=== PATIENT | female | born 1995 | race Caucasian/White ===

== ENCOUNTER 2016-10-28 00:59 | Emergency (ER) | payer OTHER ==
[~2016-10-28] VITALS: Ht 162.6 cm; Wt 44.0 kg
[~2016-10-28 00:59] MED LIST: AMOX500T PO; OSEL75 PO; PRED50TA PO; Z.0.NO CURRENT MEDS
[2016-10-28 01:01] VITALS: BP 141/78; PULSE 90; RESP 18; TEMP 98; O2SAT 100
--- NOTE | 2016-10-28 01:29 | PD ---
HPI Chief Complaint: Psychiatric Symptoms Time Seen by Provider: 01:24 Travel History International Travel<30 days: No Contact w/Intl Traveler<30days: No Traveled to known affect area: No History of Present Illness HPI Patient comes emergency Department stating she has been feeling sad over the past 2-3 months. Patient denies any homicidal or suicidal ideations. Patient denies a history of self-harm. Patient states she was seeing a counselor 2-3 sessions, but did not feel as though she was getting any better and stopped going. Patient denies being on any medication for this. Patient denies any medical concerns at this time. Denies any chest pain, shortness of breath, fever, headache, nausea, vomiting, or abdominal pain. Patient's mother at bedside denies any concerns over patient trying to harm her self and states she just noticed her daughter being sadder over the past couple months. [facility] Past Medical History ADD: Yes Diminished Hearing: No Gastrointestinal Disorders: Yes ("STOMACH EROSION") Reproductive: Yes (ovarian cyst) Immunizations Current: Yes ?: Not LMP: CURRENT Ovarian Cysts: Yes Past Surgical History Tonsillectomy: Yes Tympanostomy Tube: Yes (TUBES BILAT) Social History Alcohol Use: Yes (RARE) Tobacco Use: Yes (2 CIG PER DAY) Substance Use: Yes (OCC POT) Allergies-Medications (Allergen,Severity, Reaction): Coded Allergies: No Known Allergies (Verified , 10/28/16) Reported Meds & Prescriptions Reported Meds & Active Scripts Active Review of Systems Except as stated in HPI: all other systems reviewed are Neg Physical Exam Narrative GENERAL: Well-developed, under nourished, in no acute distress, and non-ill appearing. SKIN: Warm and dry. HEAD: Atraumatic. Normocephalic. EYES: Pupils equal and round. EOMI. No scleral icterus. No injection or drainage. ENT: No nasal bleeding or discharge. Mucous membranes pink and moist. NECK: Trachea midline. Supple. No nuclear rigidity. CARDIOVASCULAR: Regular rate and rhythm. No murmur appreciated. RESPIRATORY: No accessory muscle use. No respiratory distress. Clear to auscultation. Breath sounds equal bilaterally. MUSCULOSKELETAL: No obvious deformities. No clubbing. No cyanosis. No edema. Full range of motion. NEUROLOGICAL: Awake and alert. No obvious cranial nerve deficits. Motor grossly within normal limits. Normal speech. PSYCHIATRIC: Appropriate mood and affect; insight and judgment normal. Data Data Last Documented VS Vital Signs Date Time Temp Pulse Resp B/P Pulse Ox O2 Delivery O2 Flow Rate FiO2 10/28/16 01:01 98.0 90 18 141/78 100 Orders Psych Screen (10/28/16 01:23) MDM Medical Decision Making Medical Screen Exam Complete: Yes Emergency Medical Condition: Yes Differential Diagnosis Homicidal, suicidal, depression, adjustment disorder, other Narrative Course Patient was seen and examined. Patient medically cleared for further treatment and evaluation by psych. Final disposition per psych. Patient was evaluate by psych screener and given resource packet as outpatient. Patient is stable follow-up as an outpatient per psych screener. The patient is not wanting to hurt themselves or suicidal, no suicidal ideations and no recent suicidal attempts. The patient is also not wanting to hurt others and is not homicidal. The patient is appropriate and coherent and has good insight and judgment and appears to understand their illness. The patient has normal thought process and there is no evidence of psychosis. I discussed with the patient, outpatient follow up with primary care provider or Dain Crews and the patient was provided with these numbers as well as a resource packet by psych. The patient also agreed that if they did feel like hurting themselves or others that they would return here for acute assistance. The patient verbally contracted to safety and agreed with plan. I feel the patient is not a threat to self or others at this time. Patient in no obvious distress upon re-evaluation. Any questions/concerns in reference to patient diagnosis/condition discussed and clarified prior to patient's discharge. Reinforced sheer importance of close follow up with patient 's primary physician or primary care clinic and/or Dain Crews. Instructed patient to return to ED immediately, if symptoms return/worsen. Pt showed understanding of above instructions. Further instructions and recommendations were detailed in discharge paperwork. Pt ambulated without difficulty out of ED at discharge. Diagnosis Primary Impression: Feeling of sadness Referrals: [facility] Patient Instructions: Depression (ED), General Instructions Additional Instructions: Follow-up with your primary care physician and/or Dain Crews in 2-3 days for further treatment and evaluation. Return to the emergency department if symptoms get worse. Disposition: 01 DISCHARGE HOME Condition: Stable Jimmie Najera Oct 28, 2016 01:29
== END 2016-10-28 04:32 | disposition home or self-care (01) ==
LOC: NEPA 00:59
DX: F32.9 Major depressive disorder, single episode, unspecified (principal)
CPT/HCPCS: 99283

== ENCOUNTER 2016-11-12 03:53 | Emergency (ER) | payer OTHER ==
[~2016-11-12] VITALS: Ht 162.6 cm; Wt 45.5 kg
[2016-11-12 03:55] VITALS: BP 107/75; PULSE 87; RESP 16; TEMP 98.7; O2SAT 100
[2016-11-12] MEDS ORDERED: ADDE20 PO (04:02)
--- NOTE | 2016-11-12 04:26 | PD ---
HPI Chief Complaint: Psychiatric Symptoms Time Seen by Provider: 04:15 Travel History International Travel<30 days: No Contact w/Intl Traveler<30days: No Traveled to known affect area: No History of Present Illness HPI Examined in the presence of a female nurse. 21-year-old female with history of ADHD presents voluntarily for psychiatric evaluation. She reports that for the past 5 months she has been having feelings of depression, worthlessness, anxiety. She reports that a few months ago she saw a counselor 3-4 times but didn't feel that it was helping very much. Tonight she felt only and anxious at home, she reports that she met up with her boyfriend and ended up having a fight. She had a "mental breakdown" and he called the steel pourer and encouraged her to come here for further evaluation. At this point in time she endorses feelings of depression and anxiety. She denies any thoughts of self-harm. She denies any homicidal ideation. She endorses occasional marijuana use. Denies any other drug use. Denies any alcohol use, auditory or visual hallucinations. The patient was seen here on October 28 for evaluation of feelings of sadness. She was given an outpatient psychiatric resource packet. She reports that she has looked through the packet but she has not yet attempted to call a psychiatrist to make an appointment for outpatient follow-up. She reports that she does have an appointment with her primary care physician but not until January. She has no other complaints. [facility] Past Medical History ADD: Yes Diminished Hearing: No Gastrointestinal Disorders: Yes ("STOMACH EROSION") Reproductive: Yes (ovarian cyst) Immunizations Current: Yes ?: Unknown LMP: 10/27/2016 : 1 Miscarriage: 1 Ovarian Cysts: Yes Past Surgical History Tonsillectomy: Yes Tympanostomy Tube: Yes (TUBES BILAT) Social History Alcohol Use: Yes (RARE) Tobacco Use: Yes (2 CIG PER DAY) Substance Use: Yes (MJ) Allergies-Medications (Allergen,Severity, Reaction): Coded Allergies: No Known Allergies (Verified , 11/12/16) Reported Meds & Prescriptions Reported Meds & Active Scripts Active Reported Adderall (Amphetamine-Dextroamphetamine) 20 Mg Tab 20 Mg PO BID Avoid late evening doses. Space doses at least 4 to 6 hours if more than once/day dosing. Review of Systems Except as stated in HPI: all other systems reviewed are Neg Physical Exam Narrative GENERAL: Well-developed well-nourished female in no acute distress answering questions appropriately vital signs reviewed SKIN: Warm and dry. HEAD: Atraumatic. Normocephalic. EYES: Pupils equal and round. No scleral icterus. No injection or drainage. ENT: No nasal bleeding or discharge. Mucous membranes pink and moist. NECK: Trachea midline. No JVD. CARDIOVASCULAR: Regular rate and rhythm. No murmur appreciated. RESPIRATORY: No accessory muscle use. Clear to auscultation. Breath sounds equal bilaterally. GASTROINTESTINAL: Abdomen soft, non-tender, nondistended. Hepatic and splenic margins not palpable. MUSCULOSKELETAL: No obvious deformities. NEUROLOGICAL: Awake and alert. No obvious cranial nerve deficits. Motor grossly within normal limits. Normal speech. PSYCHIATRIC: Somewhat depressed and anxious appearing. Her insight and judgment are normal. Data Data Last Documented VS Vital Signs Date Time Temp Pulse Resp B/P Pulse Ox O2 Delivery O2 Flow Rate FiO2 11/12/16 06:21 90 18 119/75 11/12/16 03:55 98.7 100 Room Air Orders Complete Blood Count With Diff (11/12/16 04:21) Comprehensive Metabolic Panel (11/12/16 04:21) Thyroid Stimulating Hormone (11/12/16 04:21) Ed Urine Pregnancytest Poc (11/12/16 04:21) Psych Screen (11/12/16 04:21) Drug Screen, Random Urine (11/12/16 04:21) Alcohol (Ethanol) (11/12/16 04:21) Alprazolam (Xanax) (11/12/16 04:30) Diet Regular Basic (11/12/16 Breakfast) Acetaminophen (Tylenol) (11/12/16 06:30) Labs Laboratory Tests Test 11/12/16 11/12/16 04:25 05:30 White Blood Count 8.4 TH/MM3 Red Blood Count 4.75 MIL/MM3 Hemoglobin 14.9 GM/DL Hematocrit 41.8 % Mean Corpuscular Volume 88.2 FL Mean Corpuscular Hemoglobin 31.4 PG Mean Corpuscular Hemoglobin 35.6 % Concent Red Cell Distribution Width 13.1 % Platelet Count 255 TH/MM3 Mean Platelet Volume 9.2 FL Neutrophils (%) (Auto) 67.4 % Lymphocytes (%) (Auto) 23.6 % Monocytes (%) (Auto) 6.1 % Eosinophils (%) (Auto) 2.3 % Basophils (%) (Auto) 0.6 % Neutrophils # (Auto) 5.6 TH/MM3 Lymphocytes # (Auto) 2.0 TH/MM3 Monocytes # (Auto) 0.5 TH/MM3 Eosinophils # (Auto) 0.2 TH/MM3 Basophils # (Auto) 0.1 TH/MM3 CBC Comment DIFF FINAL Differential Comment Sodium Level 141 MEQ/L Potassium Level 3.6 MEQ/L Chloride Level 108 MEQ/L Carbon Dioxide Level 24.6 MEQ/L Anion Gap 8 MEQ/L Blood Urea Nitrogen 6 MG/DL Creatinine 0.67 MG/DL Estimat Glomerular Filtration 112 ML/MIN Rate Random Glucose 78 MG/DL Calcium Level 8.6 MG/DL Total Bilirubin 0.3 MG/DL Aspartate Amino Transf 15 U/L (AST/SGOT) Alanine Aminotransferase 17 U/L (ALT/SGPT) Alkaline Phosphatase 38 U/L Total Protein 7.3 GM/DL Albumin 4.1 GM/DL Thyroid Stimulating Hormone 3.560 uIU/ML 3rd Gen Ethyl Alcohol Level 59 MG/DL Urine Opiates Screen NEG Urine Barbiturates Screen POS Urine Amphetamines Screen POS Urine Benzodiazepines Screen NEG Urine Cocaine Screen NEG Urine Cannabinoids Screen NEG MDM Medical Decision Making Medical Screen Exam Complete: Yes Emergency Medical Condition: Yes Medical Record Reviewed: Yes Interpretation(s) CBC unremarkable CMP unremarkable Drug screen positive for barbiturates, amphetamines Alcohol level 59 Differential Diagnosis Major depressive disorder, depressive disorder not otherwise specified, generalized anxiety disorder, adjustment reaction, substance-induced disorder, acute psychosis Narrative Course 21-year-old female presents voluntarily for psychiatric evaluation. She has been having feelings of depression for the past 4-5 months, carlos enriqueight had a "breakdown" when in the presence of her boyfriend and the police encouraged her to come here for further evaluation. On initial examination she does appear depressed and anxious that she is denying any suicidal or homicidal thoughts. Insight and judgment appear reasonable. She will be given a dose of Xanax. Mental health screening discussed with the patient. Psychiatric screen ordered. The patient's lab work has been reviewed. Positive for amphetamines, barbiturates. Alcohol level 59. She is medically clear for psychiatric disposition. She was given Tylenol for headache. Diagnosis Primary Impression: Depression Qualified Code: F32.9 - Depression, unspecified depression type Grzegorz Dyer Nov 12, 2016 04:26
[2016-11-12] MEDS ORDERED: ALPRAZolam 1 MG TAB PO ONE (04:30)
[2016-11-12 05:12] LABS: AUTOMATED NEUTROPHIL # 5.6 TH/MM3 (1.8-7.7); BASOPHIL # 0.1 TH/MM3 (0-0.2); BASOPHIL % 0.6 % (0.0-2.0); EOSINOPHIL # 0.2 TH/MM3 (0-0.4); EOSINOPHIL % 2.3 % (0.0-4.0); HEMATOCRIT 41.8 % (35.0-46.0); HEMO FLAGS DIFF FINAL; LYMPH % 23.6 % (9.0-44.0); MEAN CELL VOLUME 88.2 FL (80.0-100.0); MEAN CORPUSCULAR HEMOGLOBIN 31.4 PG (27.0-34.0); MEAN CORPUSCULAR HGB CONC 35.6 % (32.0-36.0); MONO % 6.1 % (0.0-8.0); NEUT % 67.4 % (16.0-70.0); PLATELET COUNT 255 TH/MM3 (150-450); RED BLOOD COUNT 4.75 MIL/MM3 (4.00-5.30); RED CELL DISTRIBUTION WIDTH 13.1 % (11.6-17.2); WHITE BLOOD COUNT 8.4 TH/MM3 (4.0-11.0)
[2016-11-12 05:19] LABS: ALT (GPT) 17 U/L (9-42); ANION GAP 8 MEQ/L (5-15); AST (GOT) 15 U/L (16-38); BICARBONATE 24.6 MEQ/L (21.0-32.0); BLOOD UREA NITROGEN 6 MG/DL (7-18); CHLORIDE 108 MEQ/L (98-107); GLOMERULAR FILTRATION RATE 112 ML/MIN (>89); POTASSIUM 3.6 MEQ/L (3.5-5.1); SODIUM (NA) 141 MEQ/L (136-145)
[2016-11-12 05:29] LABS: ALKALINE PHOSPHATASE 38 U/L (45-117); TOTAL BILIRUBIN ADULT 0.3 MG/DL (0.2-1.0)
[2016-11-12 05:57] LABS: AMPHETAMINE, URINE POS (NEG); BARBITURATES, URINE POS (NEG); COCAINE, URINE NEG (NEG)
[2016-11-12 06:21] VITALS: BP 119/75; PULSE 90; RESP 18
[2016-11-12] MEDS ORDERED: ACETAMINOPHEN 325 MG TAB PO ONE (06:30)
[2016-11-12 10:45] VITALS: BP 99/55; PULSE 100; RESP 16; O2SAT 99
--- NOTE | 2016-11-12 13:10 | PD.CONS ---
Provisional Diagnosis Admission Date 11/12/16 Etoile I. Major depression single episode moderate f 32.1 History of Present Illness Service Psychiatry Consult Requested By EDMD Reason for Consult Assessment Primary Care Physician Eliceo Hinson MD HPI Patient is a 21-year-old white female comes here voluntarily give a history of depression and sadness that seems to have evolved since patient having a miscarriage in June 2016 fair feelings of hopelessness and worthlessness with this, she did see a counselor for a brief period of time before that that was not very productive. Patient was seen here on October 28 for those same symptoms. And was released with recommendations for finding outpatient psychiatric services. Patient states she has been doing that without success so far. Patient lives with her mother who works in veterinary hospital shift lead at [employer] at times feels lonely with the mother not home. Patient does have a boyfriend was the father of miscarriage. It appears she was at work yesterday went to a birthday libertarian with her boss he had a few drinks. However became concerned about her driving. Vague anicteric argument with this there is some confrontation with it leaving the patient to become more depressed and crying. Patient denies any prior psychiatric contact hospitalization his psychotropic medication. Review of EMR shows no prior psychiatric contact or hospitalizations. Patient does acknowledge some past use of marijuana. Patient denies any detox or rehabilitation or of the legal issues. 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 She does state she sees a primary care physician for a diagnosis of attention deficit disorder and is on Adderall for that. She states she does abuse her migraines is on Fioricet for that. Patient denies any history of physical or sexual abuse. Denies any history mental health issues with her family of origin In any event at the present time patient does not meet criteria for inpatient psychiatric hospitalization. I have encouraged her to contact the mental health professional both for counseling and medication management. Perhaps there are D[facility] act. She does have a list was given to her in October of various resources. Also strongly recommended abstinence from alcohol or other drugs including marijuana Review of Systems Constitutional: DENIES: Diaphoretic episodes, Fatigue, Fever, Weight gain, Weight loss, Chills, Dizziness, Change in appetite, Night Sweats Endocrine: DENIES: Abnorml menstrual pattern, Heat/cold intolerance, Polydipsia , Polyuria, Polyphagia Eyes: DENIES: Blurred vision, Diplopia, Eye inflammation, Eye pain, Vision loss , Photosensitivity, Double Vision Ears, nose, mouth, throat: DENIES: Tinnitus, Hearing loss, Vertigo, Nasal discharge, Oral lesions, Throat pain, Hoarseness, Ear Pain, Running Nose, Epistaxis, Sinus Pain, Toothache, Odynophagia Respiratory: DENIES: Apneas, Cough, Snoring, Wheezing, Hemoptysis, Sputum production, Shortness of breath Cardiovascular: DENIES: Chest pain, Palpitations, Syncope, Dyspnea on Exertion , PND, Lower Extremity Edema, Orthopnea, Claudication Gastrointestinal: DENIES: Abdominal pain, Black stools, Bloody stools, Constipation, Diarrhea, Nausea, Vomiting, Difficulty Swallowing, Anorexia Genitourinary: DENIES: Abnormal vaginal bleeding, Dysmenorrhea, Dyspareunia, Sexual dysfunction, Urinary frequency, Urinary incontinence, Urgency, Hematuria , Dysuria, Nocturia, Vaginal discharge Musculoskeletal: DENIES: Joint pain, Muscle aches, Stiffness, Joint Swelling, Back pain, Neck pain Integumentary: DENIES: Abnormal pigmentation, Pruritus, Rash, Nail changes, Breast masses, Breast skin changes, Nipple discharge Hematologic/lymphatic: DENIES: Bruising, Lymphadenopathy Immunologic/allergic: DENIES: Eczema, Urticaria Neurologic: DENIES: Abnormal gait, Headache, Localized weakness, Paresthesias, Seizures, Speech Problems, Tremor, Poor Balance Psychiatric: COMPLAINS OF: Anxiety, Depression Past Family Social History Coded Allergies: No Known Allergies (Verified , 11/12/16) Past Medical History Past history migraines history of miscarriage about 8 months ago Reported Medications Amphetamine-Dextroamphetamine (Adderall)20 Mg Tab20 Mg PO BID #60 TAB Ref 0 Avoid late evening doses. Space doses at least 4 to 6 hours if more than once/day dosing. 11/12/16 Family History Patient denies mental health for addictions history and family Social History Patient lives with mother does have boyfriend Patient's Strengths (min. 2) Patient verbal irritable access healthcare Physical Exam Patient seen screened in ED exam reviewed and agreed with Vital Signs Vital Signs Date Time Temp Pulse Resp B/P Pulse Ox O2 Delivery O2 Flow Rate FiO2 11/12/16 10:45 100 16 99/55 99 Room Air 11/12/16 03:55 98.7 Mental Status Examination Alert oriented somewhat disheveled white female is appears stated age long light brown to blonde hair reaching to lower back. Calm to somewhat labile mildly irritable tearful with poor to fair eye contact Appearance Clean and neat Speech: Rapid, Hesitant Orientation: x3 Memory: Unremarkable Thought Process: Linear Thought Content: Unremarkable Language Bulgarian Fund of Knowledge Fair Hallucination Type: None Attention and Concentration: Other (fair) Suicidal Ideation: No (denies) Previous Suicide Attempts: No (denies) Homicidal Ideation: No (denies) Previous Homicide Attempts: No (denies) Insight: Poor Judgment: Poor Affect: Other (slight increase range and intensity) Mood: Euthymic (to somewhat dysphoric), Irritable (mildly) Motor Activity: Normal gait Assessment & Plan Problem List: (1) Depression, major, single episode, moderate ICD Code: F32.1 Assessment & Plan Estimated LOS: days patient does not meet criteria for inpatient psychiatric hospitalization. okay by psych for discharge when medically clear and stable, no Rx by me. Patient may use resources given to her prior to access mental health professionals both counseling and medication management. Strong suggestion refrain from alcohol and marijuana use Discharge Planning See above Request HC Surrog/Guard Advoc?: No Homar Contreras MD Nov 12, 2016 13:10
== END 2016-11-12 14:03 | disposition home or self-care (01) ==
LOC: NEPJ 03:53
DX: F32.1 Major depressive disorder, single episode, moderate (principal); Z79.899 Other long term (current) drug therapy
CPT/HCPCS: 80053; 80307; 84443; 84703; 85025; 99283